=== PATIENT | female | born 1995 | race African-American/Black ===

== ENCOUNTER 2024-06-14 22:01 | Emergency (ER) | payer BC, SELFPAY ==
[2024-06-14 22:07] VITALS: BP 121/86
[2024-06-14 22:33] LABS: % Basophils 0.8 % (0-2); % Eosinophils 3.3 % (0-6); % Immature Granulocytes 0.2 % (0-0.5); % Lymphocytes 33.2 % (20.5-51.1); % Monocytes 11.4 % (1.7-9.3); % Neutrophils 51.1 % (42.2-75.2); Absolute Eosinophils 0.2 10^3/uL (0-0.7); Absolute Lymphocytes 1.6 10^3/uL (1.2-3.4); Absolute Monocytes 0.6 10^3/uL (0.1-0.6); Absolute Neutrophils 2.5 10^3/uL (1.4-6.5); HCG, Serum Qualitative Screen Negative; Hemoglobin 11.3 g/dL (12.0-16.0); Mean Corp Hgb Conc. 32.3 g/dL (33.0-37.0); Mean Corpuscular Hgb 23.8 pg (27.0-31.0); Mean Corpuscular Volume 73.7 fL (81.0-99.0); Mean Platelet Volume 11.4 fL (7.4-10.4); Nucleated Red Blood Cells % 0 %; Platelet Count 256 10^3/uL (130-400); Red Blood Cell Count 4.75 10^6/uL (4.20-5.40); Red Cell Dist. Width 14.3 % (11.5-14.5); White Blood Cell Count 4.8 10^3/uL (4.8-10.8)
[2024-06-14 22:37] LABS: ALT (SGPT) < 10 U/L (0-35); AST (SGOT) 23 U/L (14-36); Albumin 4.7 g/dl (3.5-5.0); Alkaline Phosphatase 80 U/L (38-126); Blood Urea Nitrogen 10 mg/dl (7-17); Calcium 9.8 mg/dl (8.4-10.2); Carbon Dioxide 28 mmol/L (22-30); Chloride 103 mmol/L (98-107); Glucose 92 mg/dl (70-99); Lipase 91 U/L (23-300); Potassium 4.2 mmol/L (3.5-5.1); Sodium 138 mmol/L (135-145); Total Bilirubin 0.9 mg/dl (0.2-1.3); eGFR > 60.00
--- NOTE | 2024-06-15 00:41 | ED.GENMED ---
History of Present Illness
General
Chief Complaint: Chest Pain
Time Seen by Provider: 06/15/24 00:42
History of Present Illness
History of Present Illness:
TIME OF INITIAL ENCOUNTER: 12:45 AM
HPI: The patient has several complaints but primarily was concerned of chest pain and shortness of breath over the past 2 weeks. Today she developed a periumbilical discomfort. She has some vague nausea along with the symptoms. She did have a
vaccine for yellow fever due to anticipated travel approximately 2 weeks ago. She also has a history of IBS.
EXAM:
GENERAL: Well appearing in no distress, tall and thin stature
HEENT: Moist oral mucosa
CARDIOVASCULAR: No murmurs, normal heart rate, regular rhythm, No chest wall tenderness
PULMONARY: No respiratory distress, breath sounds are clear and equal
ABDOMEN: Soft with no peritoneal signs, minimal if any periumbilical tenderness, otherwise no abdominal tenderness
NEUROLOGIC: Excellent strength all extremities, no coordination deficits
PSYCHIATRIC: Appropriate mental status, normal insight and judgement
EXTREMITIES: Nontender, no edema, moves all extremities equally
SKIN: No rash, no lesions
NUMBER AND COMPLEXITY OF PROBLEMS ADDRESSED AT THE ENCOUNTER
� Chronic conditions affecting care: IBS, anemia/thalassemia
� Acute Exacerbation and/or Progression of Chronic Illness: This is an acute problem
� Differential Diagnosis includes: Exacerbation of IBS, PE, pneumonia, pneumothorax, chest wall pain, GERD, gastroenteritis
AMOUNT AND/OR COMPLEXITY OF DATA TO BE REVIEWED AND ANALYZED
� I performed an independent evaluation of and my interpretation is:
EKG: Sinus 77, normal axis, no acute ST abnormality
CT:
X-rays: Chest x-ray shows no pneumothorax or other concerns
Laboratory Studies: White count normal, hemoglobin 11.3 which is similar to 1 year ago, chemistries unremarkable, hCG negative, troponin and D-dimer normal
Other:
� Review of other/old records: The patient was seen here in 2014 at that time it was felt that symptoms were related to irritable bowel syndrome
� Clinical information was obtained by an independent historian: Spoke to mother at bedside
� Prescriptions/Medications Considered but not given:
� Further testing considered but not performed: Considered imaging however she has a soft abdomen with virtually no tenderness on examination and a normal white blood cell count and appears very calm
RISK OF COMPLICATIONS AND/OR MORBIDITY OR MORTALITY OF PATIENT MANAGEMENT
� Social determinants of health affecting care: Lives at home
� Discussion with other providers:
� Escalation of care including admission/observation vs risk of discharge considered: The patient appears fairly comfortable throughout her stay in the Emergency Department. She has both chest pain and shortness of breath and
also developed periumbilical pain today. Old records reviewed the she has had periumbilical pain in the past and did have a CAT scan in 2018 which was relatively unremarkable. We talked about trying PPI.
ANY OTHER UPDATES:
1:45 AM: Patient does have some mild nausea�will give Zofran as well as prescription.
Phy Exam
Physical Exam
Physical Exam:
See HPI
Scores
Heart Score for Chest Pain Patients
STEMI patient?: Not applicable
Course
Orders/Labs/Results
Orders:
Orders
06/14/24 22:02
Electrocardiogram (*1) Urgent
Reason for Study: Chest Pain
EKG- Treatment ONCE
06/14/24 22:11
Test Result ONCE
06/14/24 22:15
Complete Blood Count/With Diff Urgent
Comprehensive Metabolic Panel Urgent
HCG, Serum Qualitative Screen Urgent
Lipase Urgent
06/15/24 00:48
Famotidine [Pepcid] 20 mg IV NOW STA
Ketorolac [Toradol] 15 mg IV NOW STA
06/15/24 00:49
CR Chest - 2 Views Urgent
Comment:
Reason For Exam: cp sob
06/15/24 00:53
D-Dimer Urgent
Troponin I Urgent
06/15/24 02:05
Ondansetron Injectable [Zofran] 4 mg IV NOW STA
Abnormal Lab Results
06/14/24
22:15
Hgb 11.3 L g/dL
(12.0-16.0)
Hct 35.0 L %
(37.0-47.0)
MCV 73.7 L fL
(81.0-99.0)
MCH 23.8 L pg
(27.0-31.0)
MCHC 32.3 L g/dL
(33.0-37.0)
MPV 11.4 H fL
(7.4-10.4)
Monocytes % 11.4 H %
(1.7-9.3)
06/14/24 22:15
06/14/24 22:15
Vital Signs
Initial and Last Documented VS:
Initial Vital Signs
Temp Pulse Resp BP Pulse Ox
37.4 C 91 18 121/86 100
06/14/24 22:07 06/14/24 22:07 06/14/24 22:07 06/14/24 22:07 06/14/24 22:07
Last Documented Vital Signs
Temp Pulse Resp BP Pulse Ox
37.4 C 65 14 96/68 98
06/14/24 22:07 06/15/24 02:00 06/15/24 02:00 06/15/24 02:00 06/15/24 02:00
*Critical Care Note
Total Time (30-74mins, 75-104mins- exclusive of procedures): Not Applicable
ED Attending Note
-
Portions of this chart may have been created with voice recognition software.� Occasional wrong word or��sound alike� substitutions may have occurred due to the inherent limitations of voice recognition software.
Discharge Plan
Departure
Patient Disposition: Home (Routine Discharge)
Date of Disposition: 06/15/24
Time of Disposition: 02:05
Patient with high blood pressure during this ER visit?: Yes
Discharge Problem:
Abdominal pain
Instructions: Chest Pain PCP Follow Up, BLOOD PRESSURE
Prescriptions:
New
ondansetron HCl 4 mg tablet
4 mg PO Q6H PRN (Reason: nausea and vomiting) Qty: 10 0RF
No Action
Albuterol
2 puff inhalation Q4H
Patient Comments:
RARE USE 'LIKE 2 YEARS AGO'
famotidine 20 MG tablet
20 mg PO BID Qty: 30 0RF
ondansetron HCl 4 MG tablet
4 mg PO NOW Qty: 20 0RF
Referrals:
Gwen Wright PA [Family Provider] -
Activity Restrictions/Additional Instructions:
Consider taking [id number] Pepcid which is quick acting. I also recommend taking [id number] omeprazole (Prilosec) for a 2-week course to help decrease stomach acid production. I am sending a prescription for Zofran to your pharmacy.
Basic blood work is normal. Your white blood cell count is normal at 4.8, hemoglobin is just slightly low at 11.3 which is near baseline. No sign of heart attack or blood clot in the lung based on blood work. test is negative. Liver
test and pancreas numbers are normal. Other basic labs normal. Return here if worse or other symptoms.
Interventions
Interventions:
*Risk Screen - Suicide Last Done: 06/14/24 22:07
*General Assessment Last Done: 06/14/24 22:07
*Neglect/Abuse Screening Last Done: 06/15/24 00:43
ED- Fall Risk Assessment Last Done: 06/15/24 00:43
*ED COVID-19 Vaccine History Last Done: 06/14/24 22:07
ED- Cardiac Assessment Last Done: 06/15/24 00:43
Discharge Date and Time
Print Language: SLOVENIAN
[2024-06-15 00:52] VITALS: BP 114/77; BMI 24.0
[2024-06-15] MEDS: TORADOL 15 MG IV (00:55)
[2024-06-15] MEDS: PEPCID 20 MG IV (00:56)
[2024-06-15 01:06] VITALS: BP 106/72
[2024-06-15 01:23] LABS: Troponin I < 0.012 ng/ml
[2024-06-15 01:28] LABS: D-Dimer < 0.27 ug/mlFEU (0.00-0.50)
[2024-06-15 02:00] VITALS: BP 96/68
[2024-06-15] MEDS: ZOFRAN 4 MG IV (02:09)
== END 2024-06-15 02:17 | disposition home or self-care (01) ==
LOC: EMR 22:01
PROVIDERS: EMERGENCY PHYSICIAN Emergency Medicine; FAMILY PHYSICIAN Physician Assistant Medical
DX: R10.33 Periumbilical pain (principal); R07.9 Chest pain, unspecified; R11.0 Nausea; K58.9 Irritable bowel syndrome, unspecified
CPT/HCPCS: 99285; 96374; 96375; 71046; 80053; 83690; 84484; 84703; 85025; 85379; 93005